=== PATIENT | male | born 1930 | race Caucasian/White ===

== ENCOUNTER → 2016-12-12 | Outpatient (CLI) | payer MEDICARE, OTHER ==
--- NOTE | 2016-12-12 16:22 | KCIC ---
PROCEDURE MRI brain without contrast. HISTORY Vertigo. Dizziness. Nausea. Headache and fatigue. TECHNIQUE Sagittal T1, axial T1, axial T2, axial FLAIR, axial T2 gradient, coronal T2, and diffusion imaging with ADC map were performed. COMPARISON None. FINDINGS There is symmetric prominence of the ventricles and sulci, within normal limits for age. FLAIR hyperintensities in the supratentorial white matter, most notably the periventricular white matter, are nonspecific but most commonly secondary to mild to moderate small vessel ischemic disease in a patient of this age. Similar findings are noted in the mile. There is no acute intracranial hemorrhage or extra-axial fluid collection. There is no mass effect or midline shift. There is no restricted diffusion to suggest an acute infarct. Cervicomedullary junction is unremarkable. Intracranial flow voids are preserved. There is mild pansinus mucosal thickening. Mastoid air cells are clear. IMPRESSION 1. No acute intracranial findings. 2. Brain parenchymal volume loss and mild to moderate probable small-vessel ischemic disease. Electronically signed by: Vik Delcid MD (Dec 12, 2016 16:19:54)
== END | disposition home or self-care (01) ==
LOC: KCIC MRI 14:22
PROVIDERS: ATTEND Internal Medicine
DX: R42 Dizziness and giddiness (principal)
CPT/HCPCS: 70551